=== PATIENT | female | born 1985 | race Two or more races ===

== ENCOUNTER → 2019-10-20 | Outpatient (REF) | payer OTHER ==
[2019-10-20 17:02] LABS: HEMATOCRIT 35.8 % (36.0-47.0); HEMOGLOBIN 10.7 g/dl (12.0-15.5); MEAN CORPUSCULAR HEMOGLOBIN 24.6 pg (27.0-33.0); MEAN CORPUSCULAR HGB CONC 29.9 g/dl (32.0-36.5); MEAN CORPUSCULAR VOLUME 82.3 fl (80.0-96.0); PLATELET COUNT, AUTOMATED 259 10^3/uL (150-450); RED BLOOD COUNT 4.35 10^6/uL (4.00-5.40); WHITE BLOOD COUNT 5.6 10^3/uL (4.0-10.0)
== END ==
LOC: M PLALAB 14:53
PROVIDERS: ATTEND Nurse Practitioner Family
DX: N93.9 Abnormal uterine and vaginal bleeding, unspecified (principal)
CPT/HCPCS: 36415; 84443; 85027; 87624; G0123; G0463

== ENCOUNTER → 2019-12-01 | Outpatient (CLI) | payer OTHER ==
[~2019-12-01] MED LIST: FERR325T3 PO; SPRI28TA
--- NOTE | 2019-12-04 08:52 | REP ---
Clinical: Abnormal uterine bleeding. Technique: Transabdominal pelvic ultrasound Findings: Heterogeneous anteverted uterus measures 10.8 x 3.9 x 6.5 cm. Endometrial complex measures 12 mm thickness. No discrete uterine or endometrial abnormality identified. A large multi septated complex cystic mass identified in the pelvis extending to the abdomen measures approximately 22 x 21 x 15 cm likely representing right adnexa. A presumed left ovary is identified measuring 3.2 x 4.0 x 4.0 cm including 1.9 cm simple physiologic cyst / dominant follicle and 2.0 cm complex cyst with surrounding echogenic rim possibly hemorrhagic cyst. Incidental right renal hydronephrosis likely secondary to extrinsic compression on the right ureter due to the above mentioned large complex cystic mass. Impression: 1. Large multi septated abdominopelvic cystic mass which appears to be causing associated right hydronephrosis. 2. Left ovarian changes as mentioned above likely physiologic. 3. Relatively normal appearance to the uterus. Electronically Signed by Riley Degroot MD 12/04/2019 08:43 A
== END ==
LOC: M WHC 15:20
PROVIDERS: ATTEND Nurse Practitioner Family
DX: N93.9 Abnormal uterine and vaginal bleeding, unspecified (principal); N94.89 Other specified conditions associated with female genital organs and menstrual cycle

== ENCOUNTER → 2019-12-18 | Outpatient (REF) | payer OTHER ==
[2020-01-14 05:02] LABS: BASO # 0.1 10^3/uL (0.0-0.2); BASO % 1.8 % (0.0-1.0); EOS # 0.1 10^3/uL (0.0-0.5); EOS % 1.3 % (0.0-3.0); HEMATOCRIT 41.2 % (36.0-47.0); HEMOGLOBIN 12.6 g/dl (12.0-15.5); LYMPH # 2.1 10^3/uL (1.5-5.0); LYMPH % 45.8 % (24.0-44.0); MEAN CORPUSCULAR HEMOGLOBIN 25.9 pg (27.0-33.0); MEAN CORPUSCULAR HGB CONC 30.6 g/dl (32.0-36.5); MEAN CORPUSCULAR VOLUME 84.8 fl (80.0-96.0); MONO # 0.4 10^3/uL (0.0-0.8); MONO % 7.7 % (0.0-5.0); NEUTROPHILS % 43.4 % (36.0-66.0); PARTIAL THROMBOPLASTIN TIME 29.1 SECONDS (25.0-38.4); PLATELET COUNT, AUTOMATED 332 10^3/uL (150-450); PROTHROMBIN TIME 13.4 SECONDS (11.8-14.0); RED BLOOD COUNT 4.86 10^6/uL (4.00-5.40); WHITE BLOOD COUNT 4.6 10^3/uL (4.0-10.0)
[2020-01-25 08:06] LABS: FACTOR VIII ACTIVITY SEE SEPARATE REPORT; FACTOR VIII AG (VON WILLEBRAN) SEE SEPARATE REPORT; INHIBIN A ULTRASENSITIVE See Separate Report; INHIBIN B See Separate Report
[2020-01-27 21:23] LABS: FOLLICLE STIMULATING HORMONE 8.1 mIU/mL; LUTEINIZING HORMONE 7.7 mIU/mL; PROLACTIN 14.6 NG/ML
== END ==
LOC: M PLALAB 10:09
PROVIDERS: ATTEND Obstetrics & Gynecology
DX: R19.09 Other intra-abdominal and pelvic swelling, mass and lump (principal); N93.8 Other specified abnormal uterine and vaginal bleeding; D39.12 Neoplasm of uncertain behavior of left ovary

== ENCOUNTER 2020-01-19 10:07 | Emergency (ER) | payer OTHER ==
[~2020-01-19] VITALS: Ht 165.1 cm; Wt 53.3 kg
[2020-01-19] MEDS ORDERED: SPRI28TA (10:19)
[2020-01-19 12:30] LABS: BASO # 0.1 10^3/uL (0.0-0.2); BASO % 1.1 % (0.0-1.0); EOS # 0.1 10^3/uL (0.0-0.5); EOS % 0.7 % (0.0-3.0); HEMATOCRIT 30.9 % (36.0-47.0); HEMOGLOBIN 9.8 g/dl (12.0-15.5); LYMPH % 23.1 % (24.0-44.0); MEAN CORPUSCULAR HEMOGLOBIN 27.7 pg (27.0-33.0); MEAN CORPUSCULAR HGB CONC 31.7 g/dl (32.0-36.5); MEAN CORPUSCULAR VOLUME 87.3 fl (80.0-96.0); MONO # 0.8 10^3/uL (0.0-0.8); MONO % 9.1 % (0.0-5.0); NEUTROPHILS # 5.6 10^3/uL (1.5-8.5); NEUTROPHILS % 65.6 % (36.0-66.0); PLATELET COUNT, AUTOMATED 454 10^3/uL (150-450); RED BLOOD COUNT 3.54 10^6/uL (4.00-5.40); WHITE BLOOD COUNT 8.5 10^3/uL (4.0-10.0)
[2020-01-19 13:33] LABS: ALBUMIN 3.9 GM/DL (3.2-5.2); ALT/SGPT 18 U/L (12-78); BILIRUBIN,TOTAL 0.6 MG/DL (0.2-1.0); BLOOD UREA NITROGEN 9 MG/DL (7-18); CALCIUM LEVEL 9.3 MG/DL (8.5-10.1); CARBON DIOXIDE LEVEL 26 MEQ/L (21-32); CHLORIDE LEVEL 104 MEQ/L (98-107); GLOMERULAR FILTRATION RATE > 60.0 (>60); GLUCOSE, FASTING 81 MG/DL (70-100); SODIUM LEVEL 140 MEQ/L (136-145); TOTAL PROTEIN 8.2 GM/DL (6.4-8.2)
[2020-01-19] MEDS ORDERED: ISOVUE-370 76% 100ML VIAL As Ordered ONE (13:57)
[2020-01-19 14:11] LABS: HCG, SERUM QUALITATIVE NEGATIVE (NEGATIVE)
--- NOTE | 2020-01-19 15:30 | REPVR ---
PROCEDURE INFORMATION: Exam: CT Abdomen And Pelvis With Contrast Exam date and time: 01/19/2020 2:29 PM Age: 34 years old Clinical indication: Abdominal pain; Generalized; Additional info: Abd pain/ ovarian cyst removal last week TECHNIQUE: Imaging protocol: Computed tomography of the abdomen and pelvis with intravenous contrast. Radiation optimization: All CT scans at this facility use at least one of these dose optimization techniques: automated exposure control; mA and/or kV adjustment per patient size (includes targeted exams where dose is matched to clinical indication); or iterative reconstruction. Contrast material: ISOVUE 370; Contrast volume: 100 ml; Contrast route: INTRAVENOUS (IV); COMPARISON: PELVIS NON-OB COMPLETE US 12/01/2019 3:48 PM FINDINGS: Pleural space: No acute airspace or pleural disease. Liver: 1.5 cm hepatic hemangioma. Gallbladder and bile ducts: No cholelithiasis or biliary ductal dilatation. Pancreas: No pancreatic mass or ductal dilatation. Spleen: Inhomogeneous attenuation of the spleen related to the arterial phase of contrast enhancement. Adrenals: Unremarkable adrenals. Kidneys and ureters: Nonobstructing 3 mm right renal calculus. Stomach and bowel: Mild wall thickening in the nondistended stomach. Bowel dilatation, disproportionately involving the colon with copious stool. Scattered diverticula. Appendix: No acute appendicitis. Intraperitoneal space: Poorly defined 13.0 x 7.6 by 9.8 cm high attenuation mass in the anterior pelvis, suggesting hematoma in the setting of recent surgery, along with small foci of free air in the upper abdomen. Vasculature: Normal caliber of the abdominal aorta. Lymph nodes: Subcentimeter lymph nodes. Bladder: Normal bladder morphology prior Reproductive: 8 mm cystic structure with peripheral calcification in the right adnexa. Bones/joints: Mild scoliosis. Soft tissues: Infiltration of subcutaneous fat in the left anterolateral abdominal wall with enlargement of the adjacent left abdominal wall musculature. IMPRESSION: 1. Poorly defined 13.0 x 7.6 by 9.8 cm high attenuation mass in the anterior pelvis, suggesting hematoma in the setting of recent surgery, along with small foci of free air in the upper abdomen. 2. Infiltration of subcutaneous fat in the left anterolateral abdominal wall with enlargement of the adjacent left abdominal wall musculature. 3. Additional findings as described above. The aforementioned findings initiated a critical results communication pathway. An addendum will be issued at the time of clincian notification. Electronically signed by: Virgilio Sommer On 01/19/2020 15:30:09 PM
--- NOTE | 2020-01-19 15:35 | REPVR ---
PROCEDURE INFORMATION: Exam: CT Angiography Chest With Contrast Exam date and time: 01/19/2020 2:29 PM Age: 34 years old Clinical indication: Chest pain; Additional info: Postop ovairian cust removal, orthostatic symptoms TECHNIQUE: Imaging protocol: Computed tomographic angiography of the chest with intravenous contrast. 3D rendering (Not supervised by radiologist): MIP and/or 3D reconstructed images were created by the technologist. Radiation optimization: All CT scans at this facility use at least one of these dose optimization techniques: automated exposure control; mA and/or kV adjustment per patient size (includes targeted exams where dose is matched to clinical indication); or iterative reconstruction. Contrast material: ISOVUE 370; Contrast volume: 100 ml; Contrast route: INTRAVENOUS (IV); COMPARISON: No relevant prior studies available. FINDINGS: Pulmonary arteries: No pulmonary embolus in the opacified pulmonary arteries. Aorta: Uniform opacification and normal caliber of the thoracic aorta. Lungs: No acute airspace disease. Pleural space: No pleural effusion. Heart: No cardiomegaly. Lymph nodes: No pathologically enlarged lymph nodes. Bones/joints: Mild scoliosis. IMPRESSION: No pulmonary embolus in the opacified pulmonary arteries. Electronically signed by: Virgilio Sommer On 01/19/2020 15:35:09 PM
[2020-01-19] MEDS ORDERED: NS 1,000 ML IV ONE (15:45)
--- NOTE | 2020-01-19 16:45 | REPVR ---
PROCEDURE INFORMATION: Exam: US Pelvis Complete, Transabdominal and US Pelvis, Transvaginal Exam date and time: 01/19/2020 4:29 PM Age: 34 years old Clinical indication: Pelvic pain; Prior surgery; Surgery date: 3-7 days post-operative; Surgery type: Laparoscopy to remove lt ovarian cyst 7 days ago; Additional info: Hematoma/discomfort/post op TECHNIQUE: Imaging protocol: Real-time transabdominal and transvaginal pelvic ultrasound (complete) with image documentation. Transvaginal imaging was used for better evaluation of the endometrium and adnexa. COMPARISON: Abdominal/pelvic CT 01/19/20 FINDINGS: Uterus/cervix: Uterus measures 9.1 x 4.0 by 5.1 cm. Normal caliber of the endometrium measuring 8 mm in diameter. Small quantity of endometrial fluid. Right adnexa: Right ovary measures 2.8 x 1.2 by 4.1 cm. Multiple follicles. Right ovarian blood flow demonstrated. 13 mm calcified right ovarian cyst. Left adnexa: Left ovary not visualized. Intraperitoneal space: Poorly defined hematoma in the anterior pelvis measuring 11.5 by 6.5 x 10.7 cm. Trace free fluid. Bladder: Unremarkable bladder. IMPRESSION: 1. Poorly defined hematoma in the anterior pelvis measuring 11.5 by 6.5 x 10.7 cm. 2. Additional findings as described above. Electronically signed by: Virgilio Sommer On 01/19/2020 16:44:37 PM
[2020-01-19 19:15] VITALS: BP 100/75
[2020-01-20] MEDS ORDERED: FERR325T3 PO (12:29)
--- NOTE | 2020-01-20 13:43 | ED PDOC ---
Post-Departure Follow-Up dr noguera faxed formal report of abdkenny diallo for fu Cory Harman MD Jan 20, 2020 13:43
--- NOTE | 2020-01-30 21:14 | ECGEPIP ---
[facility] - ED Test Date: 2020-01-19 Pat Name: ONEIL VALENCIA Department: Room: - Gender: Female [employer] Supervisor: : [id number] Requested By: RONNIE Ly Order Number: [id number] Reading MD: Ronnie Rodrigez Measurements Intervals [place] Rate: 63 P: 38 GA: 127 QRS: 51 QRSD: 81 T: 40 QT: 380 QTc: 389 Interpretive Statements SINUS RHYTHM NORMAL ECG SEE DOWNTIME SCANNED REPORT
== END 2020-01-19 19:20 | disposition home or self-care (01) ==
LOC: M ED 10:07
DX: S39.83XA Other specified injuries of pelvis, initial encounter (principal); W18.39XA Other fall on same level, initial encounter; Y92.89 Other specified places as the place of occurrence of the external cause; Z79.3 Long term (current) use of hormonal contraceptives; Z91.040 Latex allergy status
CPT/HCPCS: 36415; 71275; 74177; 76830; 76856; 80053; 81001; 84443; 84703; 85025; 86850; 86900; 86901; 93005; 93976; 99285; Q9967

== ENCOUNTER 2020-01-20 08:49 | Emergency (ER) | payer OTHER ==
[~2020-01-20] VITALS: Ht 160 cm; Wt 54.1 kg
[~2020-01-20 08:49] MED LIST changes: -FERR325T3 PO
[2020-01-20 09:53] LABS: BASO # 0.1 10^3/uL (0.0-0.2); BASO % 1.1 % (0.0-1.0); EOS # 0.1 10^3/uL (0.0-0.5); EOS % 1.6 % (0.0-3.0); HEMATOCRIT 25.7 % (36.0-47.0); HEMOGLOBIN 8.2 g/dl (12.0-15.5); LYMPH # 1.7 10^3/uL (1.5-5.0); LYMPH % 23.1 % (24.0-44.0); MEAN CORPUSCULAR HEMOGLOBIN 28.3 pg (27.0-33.0); MEAN CORPUSCULAR HGB CONC 31.9 g/dl (32.0-36.5); MEAN CORPUSCULAR VOLUME 88.6 fl (80.0-96.0); MONO # 0.8 10^3/uL (0.0-0.8); NEUTROPHILS # 4.8 10^3/uL (1.5-8.5); NEUTROPHILS % 63.5 % (36.0-66.0); PLATELET COUNT, AUTOMATED 451 10^3/uL (150-450); WHITE BLOOD COUNT 7.5 10^3/uL (4.0-10.0)
[2020-01-20 10:32] LABS: ALBUMIN 3.4 GM/DL (3.2-5.2); ALT/SGPT 15 U/L (12-78); BILIRUBIN,DIRECT 0.1 MG/DL (0.0-0.2); BILIRUBIN,TOTAL 0.5 MG/DL (0.2-1.0); BLOOD UREA NITROGEN 9 MG/DL (7-18); CALCIUM LEVEL 9.3 MG/DL (8.5-10.1); CARBON DIOXIDE LEVEL 26 MEQ/L (21-32); CHLORIDE LEVEL 107 MEQ/L (98-107); CK-MB VALUE MASS < 1.0 NG/ML (<3.6); CPK CREATINE PHOSPHOKINASE 67 U/L (26-192); CREATININE FOR GFR 0.72 MG/DL (0.55-1.30); GLOMERULAR FILTRATION RATE > 60.0 (>60); GLUCOSE, FASTING 88 MG/DL (70-100); LIPASE 84 U/L (73-393); MB/CK RELATIVE INDEX 1.49 (< OR =4); POTASSIUM SERUM 3.9 MEQ/L (3.5-5.1); SODIUM LEVEL 139 MEQ/L (136-145); TROPONIN I < 0.02 NG/ML (< 0.10)
--- NOTE | 2020-01-20 10:42 | REPVR ---
PROCEDURE INFORMATION: Exam: US Pelvis Limited, Transabdominal Exam date and time: 01/20/2020 10:25 AM Age: 34 years old Clinical indication: Condition or disease; Other: Hematoma; Prior surgery; Surgery date: 3-7 days post-operative; Surgery type: Lap ovarian cystectomy 01/12/20; Additional info: Pelvic hematoma, lap ovarian cystectomy 01/12/20 TECHNIQUE: Imaging protocol: Real-time transabdominal pelvic ultrasound with image documentation. Limited exam. COMPARISON: US PELVIC NON-OB COMPLETE 01/19/2020 4:06 PM FINDINGS: Bladder: Previously noted hematoma superior to the urinary bladder now measures 10.2 x 5.5 x 10.8 cm, fairly stable from previous measurements of 10.7 x 6.5 x 11.5 cm. IMPRESSION: Fairly stable size of a hematoma superior to the urinary bladder as compared with 1 day prior. Electronically signed by: Heber Levi On 01/20/2020 10:42:12 AM
[2020-01-20] MEDS ORDERED: FERR325T3 PO (12:29)
[2020-01-20 12:42] VITALS: BP 110/64
== END 2020-01-20 12:43 | disposition home or self-care (01) ==
LOC: M ED 08:49
DX: Z48.89 Encounter for other specified surgical aftercare (principal); N99.841 Postprocedural hematoma of a genitourinary system organ or structure following other procedure; D64.9 Anemia, unspecified; Z91.040 Latex allergy status

== ENCOUNTER → 2020-01-23 | Outpatient (CLI) | payer OTHER ==
[~2020-01-23] MED LIST changes: +FERR325T3 PO
[2020-01-23 11:16] LABS: HEMATOCRIT 29.3 % (36.0-47.0); HEMOGLOBIN 8.9 g/dl (12.0-15.5)
== END ==
LOC: M LAB 10:13
PROVIDERS: ATTEND Physician Assistant
DX: R79.9 Abnormal finding of blood chemistry, unspecified (principal)

== ENCOUNTER → 2021-03-05 | Outpatient (CLI) | payer OTHER ==
[2021-03-05 13:45] LABS: BLOOD UREA NITROGEN 9 MG/DL (7-18); CALCIUM LEVEL 9.6 MG/DL (8.5-10.1); CARBON DIOXIDE LEVEL 28 MEQ/L (21-32); CHLORIDE LEVEL 105 MEQ/L (98-107); CHOLESTEROL LEVEL 240 MG/DL (<200); CHOLESTEROL RISK RATIO 2.526 (<5); CREATININE FOR GFR 0.86 MG/DL (0.55-1.30); GLOMERULAR FILTRATION RATE > 60.0 (>60); GLUCOSE, FASTING 86 MG/DL (70-100); HDL CHOLESTEROL 95 MG/DL (>40); LDL CHOLESTEROL 132 MG/DL (<100); NON-HDL-C 145 MG/DL; SODIUM LEVEL 139 MEQ/L (136-145); TRIGLYCERIDES LEVEL 63 MG/DL (<150)
[2021-03-05 14:35] LABS: HIV 1&2 SCREEN CENTAUR NEGATIVE (NEGATIVE)
== END ==
LOC: M PLALAB 11:20
PROVIDERS: ATTEND Nurse Practitioner Women's Health
DX: Z12.4 Encounter for screening for malignant neoplasm of cervix (principal); N88.8 Other specified noninflammatory disorders of cervix uteri

== ENCOUNTER → 2021-04-17 | Outpatient (CLI) | payer OTHER ==
[2021-04-18 20:07] LABS: HEPATITIS C QUANTITATION HCV Not Detected IU/mL (.); HSV IgM TYPES 1&2 1.37 Ratio (0.00-0.90); HSV TYPE I IgG SPECIFIC 4.35 index (0.00-0.90); HSV TYPE II IgG SPECIFIC 7.71 index (0.00-0.90)
== END ==
LOC: M PLALAB 10:15
PROVIDERS: ATTEND Obstetrics & Gynecology Obstetrics
DX: Z11.3 Encounter for screening for infections with a predominantly sexual mode of transmission (principal)

== ENCOUNTER → 2023-06-14 | Outpatient (CLI) | payer OTHER ==
[2023-06-14 16:17] LABS: HEPATITIS C VIRUS ABY INDEX < 0.02 INDEX (<0.8)
== END ==
LOC: M PLALAB 11:39
PROVIDERS: ATTEND Obstetrics & Gynecology Obstetrics
DX: Z48.89 Encounter for other specified surgical aftercare (principal)

== ENCOUNTER → 2023-07-08 | Outpatient (CLI) | payer OTHER | LOC: M WHC 10:02 | PROVIDERS: ATTEND Obstetrics & Gynecology Obstetrics | DX: R10.2 Pelvic and perineal pain (principal); Z90.721 Acquired absence of ovaries, unilateral ==